=== PATIENT | male | born 1955 | race Asian ===

== ENCOUNTER → 2020-05-20 08:17 | Outpatient (CLI) | payer OTHER, SELFPAY ==
[2020-05-20 08:55] LABS: Add Manual Diff / Slide Review NO; Basophils Absolute Auto 100 /uL (0-100); Eosinophils Absolute Auto 300 /uL (0-450); Eosinophils Percent Auto 3.1 % (2-4); Hemoglobin 14.9 g/dL (13.5-17.5); Lymphocytes Absolute Auto 1600 /uL (1100-4500); Lymphocytes Percent Auto 19.4 % (25-40); Mean Corpuscular HGB Conc 33.8 % (30-36); Mean Corpuscular Hemoglobin 31.1 PG (26-34); Mean Corpuscular Volume 91.8 fL (80-100); Monocytes Absolute Auto 700 /uL (0-900); Monocytes Percent Auto 8.8 % (3-14); Neutrophils Absolute Auto 5500 /uL (1500-7000); Neutrophils Percent Auto 67.7 % (50-75); Platelet Count 211 X10^3/uL (150-400); Red Blood Cell Count 4.79 X10^6/uL (4.5-5.9); White Blood Cell Count 8.1 X10^3/uL (4.5-11.0)
[2020-05-20 09:29] LABS: Alanine Aminotransferase 23 IU/L (<50); Albumin 4.5 g/dL (3.5-5.0); Albumin Globulin Ratio 1.2 (1.0-2.8); Alkaline Phosphatase 79 U/L (38-126); Aspartate Aminotransferase 28 IU/L (17-59); BUN Creatinine Ratio 30.1 (6-22); Bilirubin Total 1.1 mg/dL (0.2-1.3); Blood Urea Nitrogen 22 mg/dL (9-20); Calcium 9.4 mg/dL (8.4-10.2); Carbon Dioxide 31 mmol/L (22-32); Chloride 105 mmol/L (98-107); Cholesterol 193 mg/dL (140-199); Estimated Glomerular Filt Rate > 60.0 mL/min (>60); Globulin 3.7 g/dL (1.7-4.1); Glucose 103 mg/dL (80-110); HDL Cholesterol 40 mg/dL (40-60); LDL Cholesterol Calculated 123 mg/dL (<100); Potassium 4.3 mmol/L (3.4-5.1); Sodium 141 mmol/L (137-145); Total Protein 8.2 g/dL (6.3-8.2); Triglycerides 149 mg/dL (35-150)
[2020-05-20 09:32] LABS: HEMOLYSIS 67 (0-50)
== END ==
PROVIDERS: PCP Registered Nurse; Referring Provider Registered Nurse; Visit Provider Registered Nurse
DX: Z00.00 Encounter for general adult medical examination without abnormal findings (principal); Z82.49 Family history of ischemic heart disease and other diseases of the circulatory system
CPT/HCPCS: 36415; 80053; 80061; 85025

== ENCOUNTER → 2021-12-17 08:07 | Outpatient (CLI) | payer OTHER, MEDICARE, SELFPAY ==
--- NOTE | 2021-12-17 | DI.US.S_ITS ---
PROCEDURE: US ABDOMEN LIMITED INDICATIONS: FOLLOW-UP LIVER MASS TECHNIQUE: Real-time focused scanning was performed of the abdomen, with image documentation. COMPARISON: None. FINDINGS: Diffusely increased hepatic parenchymal echogenicity. There is a tiny septated hepatic cyst in the posterior and inferior right hepatic lobe measuring 4 millimeters, with a thin traversing septation and increased through transmission of sound. There is no evidence of a solid liver lesion. No intrahepatic or extrahepatic biliary ductal dilatation. IMPRESSION: Approximately 4 millimeter septated hepatic cyst, of unlikely clinical significance. Otherwise no evidence of hepatic mass. Please note that no prior imaging was available for comparison despite of reported history of liver mass. Comparison with prior studies would be helpful. Advanced imaging such as hepatic protocol CT or MRI would be helpful if there is a prior study documenting a liver mass. Dictated by: Mark Bridges M.D. on 12/17/2021 at 10:18 Approved by: Mark Bridges M.D. on 12/17/2021 at 10:20
== END ==
PROVIDERS: PCP Registered Nurse; Referring Provider Family Medicine; Visit Provider Family Medicine
DX: Z85.05 Personal history of malignant neoplasm of liver (principal); Z08 Encounter for follow-up examination after completed treatment for malignant neoplasm; K76.89 Other specified diseases of liver
CPT/HCPCS: 76705